=== PATIENT | male | born 1960 | race Asian ===

== ENCOUNTER 2022-04-03 09:06 | Outpatient (CLI) | payer OTHER | END 2022-04-03 09:07 | disposition home or self-care (01) | LOC: RAD 09:06 | PROVIDERS: ATTEND Internal Medicine Critical Care Medicine | DX: R06.00 Dyspnea, unspecified (principal) | CPT/HCPCS: 71046 ==

== ENCOUNTER 2023-09-08 07:05 | Outpatient (CLI) | payer OTHER | END 2023-09-08 07:06 | disposition home or self-care (01) | LOC: BICULT 07:05 | PROVIDERS: ATTEND Nurse Practitioner Family | DX: R10.10 Upper abdominal pain, unspecified (principal) | CPT/HCPCS: 76700 ==